=== PATIENT | female | born 1965 | race Caucasian/White ===

== ENCOUNTER 2023-10-09 11:47 | Emergency (ER) | payer OTHER, SELFPAY ==
[2023-10-09 11:58] VITALS: BP 146/96; PULSE 72; RESP 16; TEMP 36.6; O2SAT 97
--- NOTE | 2023-10-09 13:15 | W.ED.GENAD ---
HPI General Stated Complaint: Nk/Back Pain JUS: 4 Date/Time Provider Initiated Documentation: 10/09/23 12:40. HPI Narrative: This 58-year-old female presents with left lower back pain for the past 2 weeks. Has been taking Motrin with only mild relief in symptoms presents secondary to persistence of symptoms, denies history of IV drug use fever chills, urinary symptoms, abdominal pain. Worse with movement. Denies strength or sensation changes to extremities or changes in bowel or bladder. Denies saddle anesthesia or chance of . Related Data Home Medications Medication Instructions Recorded Confirmed amlodipine 2.5 mg tablet 2.5 mg PO DAILY 10/09/23 10/09/23 cyclobenzaprine 10 mg tablet 10 mg PO TID PRN #14 tabs 10/09/23 hydrochlorothiazide 25 mg tablet 25 mg PO DAILY 10/09/23 10/09/23 levothyroxine 75 mcg capsule 75 mcg PO DAILY 10/09/23 10/09/23 prednisone 20 mg tablet 40 mg (2 x 20 mg) PO ONCE #10 tabs 10/09/23 Previous Rx's Medication Instructions Recorded cyclobenzaprine 10 mg tablet 10 mg PO TID PRN #14 tabs 10/09/23 prednisone 20 mg tablet 40 mg (2 x 20 mg) PO ONCE #10 tabs 10/09/23 Allergies Allergy/AdvReac Type Severity Reaction Status Date / Time No Known Allergies Allergy Unverified 10/09/23 12:01 [facility] All Active Problems (Updated 10/09/23 @ 13:18 by ROX Lemon) Low back pain (Acute) Social History Smoking/Tobacco Use Status: Never Smoking risk assessment performed?: Yes Alcohol Intake: current Alcohol Intake frequency: a few times a week Alcohol type: beer and wine Drug use: Never Substance use type: does not use Housing: house Do you feel safe at home: Yes Do you feel safe in your relationship?: Yes PAWSS Have you Been Recently Intoxicated or Drunk Within the Last 30 days?: No Have you Ever Experienced Previous Episodes of Alcohol Withdrawal?: No Have you ever Experienced Withdrawal Seizures?: No Have you ever Experienced Delirium Tremens(DT)s?: No Have you ever undergone Alcohol Rehabilitation Treatment (i.e, inpt ot outpatient treatment programs)?: No Have you ever Experienced Blackouts?: No Have you ever Combined Alcohol with other Downers within the last 90 days?: No Have you ever Combined Alcohol with any other Substance of Abuse during the last 90 days?: No Positive Blood Alcohol level on Presentation? [PCS.BAL]: No Evidence of Increased Autonomic Activity (i.e. HR>120, tremor, sweating, agitation, nausea)?: No Result: 0 Course Vital Signs Vital signs: Vital Signs Temperature 36.6 C 10/09/23 11:58 Pulse 72 10/09/23 11:58 Respiratory Rate 16 10/09/23 11:58 Blood Pressure 146/96 H 10/09/23 11:58 Pulse Oximetry 97 10/09/23 11:58 Temperature 36.6 C 10/09/23 11:58 Temperature Source Temporal Artery Scan 10/09/23 11:58 Pulse 72 10/09/23 11:58 Respiratory Rate 16 10/09/23 11:58 Respiratory Effort Normal, Non-Labored 10/09/23 13:00 Blood Pressure 146/96 H 10/09/23 11:58 Pulse Oximetry 97 10/09/23 11:58 Oxygen Delivery Method Room Air 10/09/23 11:58 Oxygen Flow Rate 0 10/09/23 11:58 Pain Level 3 10/09/23 11:58 Comment pain 2-3 but shoots to an 8 10/09/23 11:58 Medical Decision Making 58-year-old female in no acute distress, reproducible tenderness over the left sacroiliac region, no CVA tenderness, no abdominal tenderness, no urinary symptoms, no rashes or lesions Neurovascularly intact without evidence of cauda equina syndrome, negative Babinski, DTRs intact bilateral lower extremities, strength and sensation intact distally No abdominal bruit or pulsatile mass Pain exacerbated with movement Ambulatory with steady gait Will place on Flexeril, ibuprofen, Tylenol Return precautions reviewed and patient expressed understanding Quality:SDOH Health Related Social Needs: No Data to Display Discharge Plan Disposition Patient Disposition: Home Discharge Details Clinical Impression: Low back pain Primary Care Provider: None,None ED Provider: So Vanessa Home Meds and New Rx's Prescriptions: New cyclobenzaprine 10 mg tablet 10 mg PO TID PRNQty: 14 0RF prednisone 20 mg tablet 40 mg PO ONCE Qty: 10 0RF Continued levothyroxine 75 mcg capsule 75 mcg PO DAILY hydrochlorothiazide 25 mg tablet 25 mg PO DAILY amlodipine 2.5 mg tablet 2.5 mg PO DAILY Discharge Instructions Instructions: Low Back Strain (ED) Additional Instructions: Take the cyclobenzaprine, 10 mg every 8 hours as needed for pain, this is a muscle relaxant and may cause you to be drowsy, do not operate your vehicle for 8 hours after taking this medication Tylenol 650 every 4 hours as needed for discomfort If you are not feeling improvement in the next 24 to 48 hours you may try taking the prednisone, if you do choose to take the prednisone stop taking ibuprofen and continue taking Tylenol Should your symptoms last longer than an additional week I recommend seeing her primary care physician in the outpatient setting Should you develop changes in bowel or bladder, groin numbness, weakness to your extremities or sensation change, please return for reevaluation Light exercise and stretching can help your symptoms Discharge Data Discharge Date/Time-TO BE ENTERED AT DEPARTURE: 10/09/23 13:37
== END 2023-10-09 13:37 | disposition home or self-care (01) ==
PROVIDERS: Emergency Provider Physician Assistant
DX: M54.50 Low back pain, unspecified (principal)
CPT/HCPCS: 99283